=== PATIENT | female | born 1965 | race Caucasian/White ===

== ENCOUNTER 2017-12-17 12:59 | Emergency (ER) | payer MEDICAID, SELFPAY ==
[2017-12-17 13:30] LABS: Bilirubin Negative (Negative); Blood, Urine Negative (Negative); Clarity CLEAR (Clear); Glucose, Urine (Dipstick) Negative (Negative); Leukocyte Trace (Negative); Nitrite Negative (Negative); Protein, Urine (Dipstick) Negative (Neg-Trace); Specific Gravity, Urine 1.014 (1.002-1.036); Urobilinogen 0.2 mg/dL (0.2-1.0); pH, Urine 6.5 (5.0-9.0)
[2017-12-17 13:32] LABS: Bacteria/HPF 1+ HPF (None Seen); Hyaline Casts/LPF 0-3 HYALINE CAST LPF (0-3 Hyaline); Pathc Cast-AUWi Flag 0.27 (0-2.49); RBC/HPF 0-3 HPF (0-3)
[2017-12-17] MEDS ORDERED: Morphine 4 MG/ML VIAL ONE (13:38)
[2017-12-17] MEDS ORDERED: Ondansetron HCl/PF 4 MG/2 ML Vial ONE (13:38)
[2017-12-17] MEDS ORDERED: ISOVUE-370 76%-LOCM 1 ML ONE (13:52)
[2017-12-17 14:10] LABS: #Basophils 0.1 thou/uL (0.0-0.2); #Eosinphils 0.4 thou/uL (0.0-0.7); #Lymphocytes 3.4 thou/uL (1.20-3.40); #Monocytes 0.5 thou/uL (0.11-0.59); #Neutrophils 2.8 thou/uL (1.40-6.50); %Basophils 0.9 % (0.0-1.0); %Lymphocytes 47.9 % (21.0-51.0); %Monocytes 7.4 % (0.0-10.0); %Neutrophils 38.9 % (42.0-75.0); Mean Corpuscular HGB CONC 33.1 g/dL (32.0-36.0); Mean Corpuscular Hemoglobin 30.4 pg (27.0-31.0); Mean Corpuscular Volume 91.8 fl (81.0-99.0); Mean Platelet Volume 7.2 fL (7.4-10.4); Platelet Count 344 thou/uL (130-400); RBC Distribution Width 12.1 % (11.5-14.5); Red Blood Cell (RBC) Count 4.26 mill/uL (4.20-5.40); White Blood Cell (WBC) Count 7.2 thou/uL (4.8-10.8)
[2017-12-17 14:29] LABS: ALT (SGPT) 54 U/L (8-55); AST (SGOT) 34 U/L (5-34); Albumin 4.2 g/dL (3.5-5.0); Alkaline Phosphatase 97 U/L (40-150); Anion Gap 12 mmol/L (10-20); BUN (Urea Nitrogen) 24 mg/dL (7.0-18.7); Bilirubin, Total 0.3 mg/dL (0.2-1.2); Calc. Creatinine Clearance 0 mL/min (70-130); Calcium 9.3 mg/dL (7.8-10.44); Carbon Dioxide 28 mmol/L (22-29); Chloride 100 mmol/L (98-107); Estimated GFR-MDRD 79; Globulin 2.9 g/dL (2.4-3.5); Glucose 86 mg/dL (70-105); Lipase 8 U/L (8-78); Potassium 4.4 mmol/L (3.5-5.1); Protein, Total 7.1 g/dL (6.0-8.3); Sodium 136 mmol/L (136-145)
--- NOTE | 2017-12-17 17:20 | CT ---
ABDOMEN AND PELVIC CT SCAN WITH IV CONTRAST: 12/17/17 HISTORY: 52-year-old female with history of abdominal pain and swelling and heartburn. History of prior append ectomy and tubal ligation. COMPARISON: 08/10/16. FINDINGS: There is some minimal pleural based parenchymal changes in the lingula and right middle lobe region. Borderline hepatomegaly. Status post cholecystectomy without significant ductal dilatation. The visua lized pancreas and spleen are unremarkable. There are some scattered small retroperitoneal lymph node s with left periaortic node up to approximately 0.8 cm. These appear stable from the prior 08/10/16 st udy. No renal calculus or acute obstruction. Attenuation changes within the uterus are somewhat he terogeneous but this may well be related to the phase of injection. No abscess, adenopathy or abnorma l fluid collection. IMPRESSION: Some up to borderline sized retroperitoneal lymph nodes but these appear little change from 08/10/16. Status post cholecystectomy. No renal calculus or obstruction. No other significant acute process. POS: [facility]
== END 2017-12-17 14:56 | disposition home or self-care (01) ==
LOC: ERS 12:59
DX: R14.0 Abdominal distension (gaseous) (principal); F41.9 Anxiety disorder, unspecified; F32.9 Major depressive disorder, single episode, unspecified; F17.210 Nicotine dependence, cigarettes, uncomplicated; Z79.899 Other long term (current) drug therapy
CPT/HCPCS: 74177; 80053; 81003; 81015; 83690; 85025; 96374; 96375; J2270; J2405

== ENCOUNTER 2018-04-20 16:27 | Emergency (ER) | payer SELFPAY ==
[2018-04-20] MEDS ORDERED: HYDROcodone/Acetaminophen 5/325 mg Tablet ONE (16:54)
[2018-04-20 17:16] LABS: #Basophils 0.1 thou/uL (0.0-0.2); #Eosinphils 0.3 thou/uL (0.0-0.7); #Lymphocytes 3.2 thou/uL (1.20-3.40); #Monocytes 0.4 thou/uL (0.11-0.59); #Neutrophils 3.9 thou/uL (1.40-6.50); %Basophils 1.4 % (0.0-1.0); %Eosinophils 4.4 % (0.0-10.0); %Lymphocytes 39.8 % (21.0-51.0); %Monocytes 5.5 % (0.0-10.0); Hemoglobin 13.7 g/dL (12.0-16.0); Mean Corpuscular HGB CONC 34.3 g/dL (32.0-36.0); Mean Corpuscular Hemoglobin 29.4 pg (27.0-31.0); Mean Corpuscular Volume 85.6 fL (78.0-98.0); Mean Platelet Volume 7.2 fL (7.4-10.4); Platelet Count 301 thou/uL (130-400); Red Blood Cell (RBC) Count 4.67 mill/uL (4.20-5.40); White Blood Cell (WBC) Count 7.9 thou/uL (4.8-10.8)
[2018-04-20 17:31] LABS: ALT (SGPT) 30 U/L (8-55); AST (SGOT) 27 U/L (5-34); Albumin 4.5 g/dL (3.5-5.0); Alkaline Phosphatase 79 U/L (40-150); Anion Gap 14 mmol/L (10-20); BUN (Urea Nitrogen) 19 mg/dL (9.8-20.1); Bilirubin, Total 0.5 mg/dL (0.2-1.2); Calc. Creatinine Clearance 0 mL/min (70-130); Calcium 9.9 mg/dL (7.8-10.44); Carbon Dioxide 22 mmol/L (22-29); Chloride 109 mmol/L (98-107); Estimated GFR-MDRD 60; Globulin 3.1 g/dL (2.4-3.5); Glucose 119 mg/dL (70-105); Protein, Total 7.6 g/dL (6.0-8.3); Sodium 141 mmol/L (136-145)
--- NOTE | 2018-04-20 18:17 | CT ---
CTA OF THE CHEST WITH CONTRAST 04/20/18 COMPARISON: None. HISTORY: Right sided neck swelling and pain. TECHNIQUE: Multiple contiguous axial images were obtained in a CTA of the chest with contrast per pulmonary embo lis protocol. 3D oblique MIP reformats and direct coronal reformats were performed. FINDINGS: The pulmonary arteries are well opacified without filling defects to suggest pulmonary emboli. The he art is normal in size without focal cardiac abnormality. No hilar or mediastinal lymphadenopathy are seen. No focal infiltrates are seen in the lungs. No suspicious pulmonary nodules are present. No pneumotho rax or pleural effusion are seen. The visualized subdiaphragmatic structures are unremarkable. The patient is status post cholecystecto my. No acute osseous abnormality is seen. There are remote healed left rib fractures. IMPRESSION: No evidence of pulmonary thromboembolism. POS: [facility]
== END 2018-04-20 18:45 | disposition home or self-care (01) ==
LOC: SCSER 16:27
DX: S16.1XXA Strain of muscle, fascia and tendon at neck level, initial encounter (principal); G89.29 Other chronic pain; G54.9 Nerve root and plexus disorder, unspecified; F41.9 Anxiety disorder, unspecified; F32.9 Major depressive disorder, single episode, unspecified; Z79.899 Other long term (current) drug therapy; Z87.891 Personal history of nicotine dependence
CPT/HCPCS: 36415; 71275; 80053; 85025; 96360

== ENCOUNTER 2019-06-09 02:42 | Emergency (ER) | payer SELFPAY ==
[2019-06-09] MEDS ORDERED: Promethazine HCl 25 MG/ML VIAL ONE (02:58)
[2019-06-09] MEDS ORDERED: Meclizine HCl 25 MG TAB ONE ×3 (03:17→04:39)
[2019-06-09] MEDS ORDERED: Ketorolac Tromethamine 30 MG/ML VIAL ONE (03:51)
--- NOTE | 2019-06-09 08:14 | CT ---
PRELIMINARY REPORT/[facility]/EMERGENCY AFTER HOURS PROCEDURE: EXAM: CT Head Without Contrast EXAM DATE/TIME: 06/09/2019 3:09 AM CLINICAL HISTORY: 54 years old, female; Headache; Patient HX: 54 y/o F presents to ED C/O CLEARY. PT describes that she awo ke to use the restroom, noticing CLEARY at that time. On returning to her bed from the bathroom, she suddenly became severely dizzy. CLEARY pain of greatest severity to bilat temples TECHNIQUE: Imaging protocol: Computed tomography of the head without contrast. COMPARISON: No relevant prior studies available. FINDINGS: Brain: No brain edema. No intracranial hemorrhage. Ventricles: Normal. No ventriculomegaly. Bones/joints: Fracture deformity of the medial wall of the right orbit, presumably chronic. Sinuses: Visualized sinuses are unremarkable. No fluid levels. Mastoid air cells: Visualized mastoid air cells are well aerated. Soft tissues: Unremarkable. IMPRESSION: 1. Fracture deformity of the medial wall of the right orbit, presumably chronic. 2. No acute brain findings. Thank you for allowing us to participate in the care of your patient. Dictated and Authenticated by: Jeremy Nguyen MD 06/09/2019 3:37 AM Central Time ([place] & [place]) FINAL REPORT: CT brain without contrast PROVIDED CLINICAL HISTORY: Headache COMPARISON: 03/30/2017 FINDINGS/IMPRESSION: Agree with the preliminary interpretation given by ALFA. Medial right orbital wall fracture is chroni c. Transcribed Date/Time: 06/09/2019 8:45 AM
== END 2019-06-09 07:32 | disposition home or self-care (01) ==
LOC: ERS 02:42
DX: R42 Dizziness and giddiness (principal); F41.9 Anxiety disorder, unspecified; F32.9 Major depressive disorder, single episode, unspecified; F17.210 Nicotine dependence, cigarettes, uncomplicated
CPT/HCPCS: 70450; 96374; 96375; J1885; J2550; J8597